=== PATIENT | male | born 1965 | race Hispanic/Latino ===

== ENCOUNTER 2020-10-05 12:17 | Outpatient (CLI) | payer OTHER | END 2020-10-05 12:18 | disposition home or self-care (01) | LOC: RAD 12:17 | PROVIDERS: ATTEND Family Medicine | DX: S42.142D Displaced fracture of glenoid cavity of scapula, left shoulder, subsequent encounter for fracture with routine healing (principal); S80.01XD Contusion of right knee, subsequent encounter; S80.02XD Contusion of left knee, subsequent encounter; M75.122 Complete rotator cuff tear or rupture of left shoulder, not specified as traumatic; M19.011 Primary osteoarthritis, right shoulder; M75.91 Shoulder lesion, unspecified, right shoulder | CPT/HCPCS: 23350 ==